=== PATIENT | female | born 1980 | race African-American/Black ===

== ENCOUNTER 2016-09-12 19:35 | Observation (INO) | payer MEDICAID ==
[~2016-09-12] VITALS: Ht 152.4 cm; Wt 527.1 kg
[2016-09-12] MEDS ORDERED: LOV40 SUBCUT (20:34)
[2016-09-12] MEDS ORDERED: PREN-55 PO (20:34)
[2016-09-12] MEDS ORDERED: HYDR50CA5 PO (20:34)
[2016-09-12] MEDS ORDERED: GLYB2.5T4 PO (20:34)
[2016-09-12] MEDS ORDERED: ASPI-1159 PO (20:34)
[2016-09-12] MEDS ORDERED: ACETAMINOPHEN 325MG TABLET PO NR (21:00)
== END 2016-09-12 21:35 | disposition home or self-care (01) ==
LOC: L&D 19:35
PROVIDERS: ADMIT Obstetrics & Gynecology; ATTEND Obstetrics & Gynecology
DX: O26.892 Other specified pregnancy related conditions, second trimester (principal); M54.9 Dorsalgia, unspecified; O24.419 Gestational diabetes mellitus in pregnancy, unspecified control; O99.112 Other diseases of the blood and blood-forming organs and certain disorders involving the immune mechanism complicating pregnancy, second trimester; D68.62 Lupus anticoagulant syndrome; Z3A.22 22 weeks gestation of pregnancy
CPT/HCPCS: 99281; G0378